=== PATIENT | male | born 1960 | race African-American/Black ===

== ENCOUNTER 2023-07-01 23:14 | Emergency (ER) | payer MEDICAID ==
[~2023-07-01] VITALS: Ht 180.3 cm; Wt 117.0 kg
[2023-07-02 00:04] VITALS: TEMP 97.6; O2SAT 100
[2023-07-02 02:45] VITALS: BP 149/92; PULSE 81; RESP 15
[2023-07-02] MEDS: KETOROLAC 30MG/ML VIAL IM ONE (02:45)
[2023-07-02] MEDS: ACETAMINOPHEN 325MG TABLET PO ONE (02:45)
[2023-07-02] MEDS ORDERED: ACET-2708 MT (03:02)
[2023-07-02] MEDS ORDERED: LIDO700A15 TP (03:02)
== END 2023-07-02 04:30 | disposition left against medical advice (07) ==
LOC: ER 23:28
DX: S39.012A Strain of muscle, fascia and tendon of lower back, initial encounter (principal); M17.12 Unilateral primary osteoarthritis, left knee; M25.511 Pain in right shoulder; I50.9 Heart failure, unspecified; Z87.01 Personal history of pneumonia (recurrent); V49.59XA Passenger injured in collision with other motor vehicles in traffic accident, initial encounter; Y93.89 Activity, other specified; Y92.89 Other specified places as the place of occurrence of the external cause; Y99.8 Other external cause status
CPT/HCPCS: 99284; 73030; 73562; 96372; J1885